=== PATIENT | male | born 1945 | race Caucasian/White ===

== ENCOUNTER → 2020-12-07 09:33 | Outpatient (CLI) | payer MEDICARE, OTHER, SELFPAY ==
--- NOTE | 2020-12-07 09:37 | US_ITS ---
PROCEDURE: US FNA THYROID CLINICAL INDICATION: BENIGN NEOPLASM LT THYROID COMPARISON: No exams were available for comparison TECHNIQUE: Time-out procedure performed. Following obtaining informed consent, using aseptic technique and local anesthesia with buffered lidocaine, fine-needle aspiration was performed of the solid nodule in the left upper pole using sonographic guidance. 3 passes were made into the nodule with a 21-gauge needle. Specimen was given to cytology. The patient tolerated the procedure well without evidence of immediate complications and left the ultrasound suite in stable condition. FINDINGS: CYTOLOGY: Suspicious for follicular neoplasm IMPRESSION: Successful and uneventful ultrasound-guided FNA of the left thyroid nodule which is suspicious for follicular neoplasm. Dictated by: Rik Coronado MD 12/21/2020 09:02 Rik Coronado MD in [place] 12/21/2020 09:02
== END ==
PROVIDERS: PCP Family Medicine; Visit Provider Otolaryngology
DX: E04.1 Nontoxic single thyroid nodule (principal)
CPT/HCPCS: 10005; 76536; 88173